=== PATIENT | male | born 1975 | race Two or more races ===

== ENCOUNTER 2020-02-15 13:39 | Emergency (ER) | payer SELFPAY ==
[~2020-02-15] VITALS: Ht 182.9 cm; Wt 68.0 kg
[2020-02-15] MEDS ORDERED: SODIUM CHLORIDE 0.9% 1,000 ML IV ONE (15:08)
[2020-02-15] MEDS ORDERED: LORAZEPAM 2MG/ML CPJ IV ONE (15:15)
[2020-02-15 15:32] LABS: CHLORIDE 93 mEq/L (98-107)
[2020-02-15 15:36] LABS: ETHANOL BLOOD < 10 mg/dL
[2020-02-15 15:38] LABS: HEMATOCRIT. 33.4 % (42.0-52.0); HEMOGLOBIN. 11.7 g/dL (14.0-18.0); MEAN CORPUSCULAR HEMOGLOBIN 36.2 pg (28.0-32.0); MEAN CORPUSCULAR VOLUME 102.9 fL (80.0-94.0); MEAN PLATELET VOLUME 8.3 fl (7.4-10.4); PLATELET 63 x1000/uL (130-400); RED BLOOD CELL COUNT 3.24 mill/uL (4.7-6.1); RED CELL DISTRIBUTION WIDTH 12.5 % (11.6-14.6)
[2020-02-15] MEDS ORDERED: LEVETIRACETAM 500MG TABLET PO ONE (16:15)
[2020-02-15 17:00] VITALS: BP 122/67
[2020-02-15 17:27] LABS: PLATELET ESTIMATE DECREASED
== END 2020-02-15 17:47 | disposition home or self-care (01) ==
LOC: ER 13:39
DX: G40.909 Epilepsy, unspecified, not intractable, without status epilepticus (principal); D50.9 Iron deficiency anemia, unspecified; E87.1 Hypo-osmolality and hyponatremia
CPT/HCPCS: 36415; 70450; 71045; 80053; 80320; 83605; 83690; 85025; 93005; 96361; 96374; 99285; J2060; J7030; G0480